=== PATIENT | female | born 1955 | race Asian ===

== ENCOUNTER 2023-06-14 09:34 | Outpatient (OUT) | payer MEDICARE, SELFPAY ==
--- NOTE | 2023-06-14 09:54 | MM_ITS ---
Patient Name: VIKTOR BERNARD MR#: [id number] : 1955 Exam Date: 06/14/2023 Ordering Doctor: DR Saqib Benson . RADIOLOGY REPORT PROCEDURE: MM TOMOSYNTHESIS SCREENING BI COMPARISON: MG MAMM HAILY SCRN W CAD DIG, 05/30/2015. MG MAMM HAILY SCRN W CAD DIG, 11/06/2012. INDICATIONS: screening Calculator Name NCI Breast Cancer Risk Assessment Tool 5 Year Breast Cancer Risk 1.50% Lifetime Breast Cancer Risk 5.20% Personal Breast Cancer No Personal Ovarian Cancer No Treatments None Family Cancers None LOCATION: [facility] BREAST COMPOSITION: Heterogeneously dense,which may obscure small masses. FINDINGS: DIAGNOSTIC CATEGORY 1--NEGATIVE. RIGHT BREAST: No significant suspicious finding. No significant change has occurred. LEFT BREAST: No significant suspicious finding. No significant change has occurred. RECOMMENDATIONS: ROUTINE MAMMOGRAM AND CLINICAL EVALUATION IN 12 MONTHS. PLEASE NOTE: A NORMAL MAMMOGRAM DOES NOT EXCLUDE THE POSSIBILITY OF BREAST CANCER. A CLINICALLY SUSPICIOUS PALPABLE LUMP SHOULD BE BIOPSIED. Dictated by: William Hess M.D. on 06/14/2023 at 16:00 Approved by: William Hess M.D. on 06/14/2023 at 16:02
== END 2023-06-14 09:35 | disposition home or self-care (01) ==
PROVIDERS: PCP Family Medicine; Visit Provider Family Medicine
DX: Z12.31 Encounter for screening mammogram for malignant neoplasm of breast (principal)
CPT/HCPCS: 77063; 77067

== ENCOUNTER 2023-07-18 14:15 | Outpatient (OUT) | payer MEDICARE, SELFPAY | END 2023-07-18 14:16 | disposition home or self-care (01) | LOC: PST 14:16 | PROVIDERS: PCP Family Medicine; Visit Provider Surgery | DX: Z01.818 Encounter for other preprocedural examination (principal); Z12.11 Encounter for screening for malignant neoplasm of colon ==

== ENCOUNTER 2023-08-14 08:16 | Day surgery (SDC) | payer MEDICARE, SELFPAY ==
--- NOTE | 2023-08-14 | OP_ITS ---
OPERATION DATE: 08/14/2023 PREOPERATIVE DIAGNOSIS: Colorectal screening. POSTOPERATIVE DIAGNOSIS: Colon polyp x3; proximal transverse colon, sigmoid colon and rectal. PROCEDURE: Colonoscopy to cecum with cold snare polypectomy x3. SURGEON: Addy Nicolas M.D. ANESTHESIA: Monitored anesthesia care. ESTIMATED BLOOD LOSS: Less than 1 mL. INDICATIONS AND CONSENT: Patient is a 68-year-old female who presents for colorectal screening. Indications, risks, benefits, alternatives of proceeding with colonoscopy were explained extensively to the patient, including the risks of bleeding, colon perforation or anesthetic complications. All of her questions were answered. Informed consent was obtained. PROCEDURE: Patient brought to the operating room, placed in the left lateral decubitus position. Monitored anesthesia care was provided. Rectal exam was performed which showed no masses or blood. The scope was inserted into the anal canal. Under direct visualization was advanced. With the aid of abdominal compression, it was advanced to the cecum where cecal markings were clearly identified. There was noted to be a good prep. Upon withdrawal of the scope, mucosal surfaces were carefully examined. There were no mass lesions or inflammatory changes. Within the proximal transverse colon, there was noted to be a 4 mm sessile polyp that was removed with cold snare with good hemostasis. There was no significant diverticulosis. Within the mid sigmoid, there was noted to be a 3 mm sessile polyp that was removed with cold snare with good hemostasis. Within the proximal rectum, there was noted to be a 3 mm sessile polyp that was also removed with cold snare with good hemostasis. The scope was retroflexed in the anal canal. There was no significant hemorrhoidal disease. Scope was then withdrawn. Patient tolerated procedure well, was sent to recovery room in good condition.f/u colonoscopy likely in 5 years, but will depend on pathology results. CC: Saqib Benson M.D. [id number]
--- OUTSIDE RECORDS SUMMARY | 2023-08-14 08:18 | XMS_ITS | CCD ---
Author Organization [facility] Care Team Providers [facility] Technician Name Role Phone DR NOVA LINDSEY Admitting Unavailable DR NOVA LINDSEY Attending Unavailable DR NOVA LINDSEY Primary Care Unavailable DR NOVA LINDSEY Consulting Unavailable Rosie Hartley Unavailable NOVA LINDSEY Attending Unavailable NOVA LINDSEY Primary Care Physician Addy WHIPPLE Attending Unavailable Allergies Allergy Classification Reported Allergen(s) Allergy Type Date of Onset Reaction(s) Facility (2 sources) cefdinir; Translations: [cefdinir] Drug Allergy 6 [facility] (1 source) Penicillins Drug allergy (disorder) 6 [facility] (1 source) Penicillin G Drug Allergy nausea/vomiting [facility] Other (1 source) cefdinir; Translations: [cefdinir] Drug Allergy [facility] [place] (2 sources) Penicillin; Translations: [penicillin] Drug Allergy [facility] [place] Medications Current Medications Medication Drug Class(es) Dates Sig (Normalized) Sig (Original) [id number] 200 actuat albuterol 0.09 mg/actuat metered dose inhaler (1 source) beta2-Adrenergic Agonist Start: 03-25-2017 take 2 puff(s) by inhalation every six hours as needed Albuterol Sulfate HFA 108 (90 Base) MCG/ACT 2 puffs as needed Inhalation every 6 hrs, prn for 10 days Mar, Active aspirin 81 mg delayed release oral tablet (1 source) Platelet Aggregation Inhibitor, Nonsteroidal Anti-inflammatory Drug take 1 tablet by mouth every twenty-four hours Aspirin Adult Low Dose 81 MG 1 tablet Orally Once a day Active Biotin (1 source) Biotin Active cetirizine hydrochloride 10 mg oral tablet (1 source) Histamine-1 Receptor Antagonist take 1 tablet by mouth once daily Cetirizine HCl 10 MG take 1 tablet by mouth once daily Oral for 30 Days Active Fish Oils (2 sources) Start: 06-12-2023 take 2 capsules by mouth once daily Fish Oil 1000 mg oral capsule 2,000 mg = 2 cap(s), Oral, Daily, Refills(s) 0 Start Date: 06/12/23 Status: Ordered Fish Oil Active Magnesium (1 source) Magnesium Active magnesium oxide 400 mg oral tablet (1 source) Start: 06-12-2023 take 1 tablet by mouth once daily magnesium oxide 400 mg Tab 400 mg = 1 tab(s), Oral, Daily, Refills(s) 0 Start Date: 06/12/23 Status: Ordered 24 hr metoprolol succinate 50 mg extended release oral tablet (2 sources) beta-Adrenergic Prabha Start: 06-12-2023 take 1 tablet by mouth once daily metoprolol 50 mg ER Tab 50 mg = 1 tab(s), Oral, Daily, Refills(s) 0 Start Date: 06/12/23 Status: Ordered Metoprolol Succi franco ER 50 MG Oral for 90 Days Active montelukast 10 mg oral tablet (2 sources) Leukotriene Receptor Antagonist Start: 06-12-2023 take 1 tablet by mouth once daily Singulair 10 mg Tab 10 mg = 1 tab(s), Oral, Daily, Refills(s) 0 Start Date: 06/12/23 Status: Ordered Montelukast Sodi um 10 MG Oral for 30 Days Active Osteo Bi-Flex Regular Strength (1 source) Osteo Bi-Flex Regular Strength Active PARoxetine hydrochloride 20 mg oral tablet (2 sources) Serotonin Reuptake Inhibitor Start: 06-12-2023 take 1 tablet by mouth once daily Paxil 20 mg Tab 20 mg = 1 tab(s), Oral, Daily, Refills(s) 0 Start Date: 06/12/23 Status: Ordered PARoxetine HCl 2 0 MG Oral for 90 Days Active Potassium (1 source) Potassium Active solifenacin succinate 10 mg oral tablet (2 sources) Cholinergic Muscarinic Antagonist Start: 06-12-2023 take 1 tablet by mouth once daily Vesicare 10 mg Tab 10 mg = 1 tab(s), Oral, Daily, Refills(s) 0 Start Date: 06/12/23 Status: Ordered Solifenacin Succ inate 10 MG Oral for 90 Days Active Vitamin B Complex (1 source) Vitamin B Comple x Active Completed/Discontinued Medications Medication Drug Class(es) Dates Sig (Normalized) Sig (Original) Augmentin Tablets 875 MG (1 source) Start: 01-15-2015 take 1 tablet by mouth every twelve hours Augmentin Tablets 875 MG 1 by mouth every 12 hours with probiotics for 10 days Jan, Not-Taking cefixime 400 mg oral capsule (1 source) Cephalosporin Antibacterial Start: 04-01-2017 take 1 capsule by mouth every twenty-four hours Suprax 400 MG 1 capsule Orally Once a day for 10 day(s) Mar, Not-Taking Crutches-Aluminum 1 (1 source) Start: 07-02-2015 Crutches-Alumin um 1 as directed aluminum underarm crutches As Directed for as directed Jun, Not-Taking dextromethorphan hydrobromide 1.5 mg/ml / pyrilamine maleate 1.5 mg/ml oral solution (1 source) Uncompetitive M-qvmpfe-C-aspartate Receptor Antagonist, Sigma-1 Agonist [place] DM 7.5-7.5 MG/5ML 2 tsp Orally 6 to 8 hours as needed for 5 days Not-Taking fluticasone propionate 0.05 mg/actuat metered dose nasal spray (1 source) Corticosteroid take 2 spray(s) nasal route once daily Flonase 50 MCG/ACT 2 sprays Nasally Once a day Not-Taking Knee Brace/Flex Stays Large 1 (1 source) Start: 07-02-2015 Knee Brace/Flex Stays Large 1 as directed knee sleeve As Directed for as directed Jun, Not-Taking potassium chloride 10 meq extended release oral capsule (1 source) Start: 06-12-2023 take 1 capsule by mouth once daily potassium chloride 10 mEq Cap-ER 10 mEq = 1 cap(s), Oral, Daily, Refills(s) 0 Start Date: 06/12/23 Status: Ordered predniSONE 20 mg oral tablet (1 source) Start: 03-25-2017 take 1 tablet by mouth every twenty-four hours predniSONE 20 mg 1 tablet with food or milk Orally Once a day for 4 days Mar, Not-Taking Problems Active Problems Problem Classification Problem Date Documented Da te Episodic/Chronic Anxiety disorders (1 source) Generalized anxiety disorder 06-12-2023 Chronic Cardiac dysrhythmias (1 source) Sinus tachycardia 06-12-2023 Episodic Disorders of lipid metabolism (5 sources) Hyperlipidemia, unspecified; Translations: [Hyperlipidemia] Onset: 06-26-2022 Chronic Other aftercare (1 source) Other termite treater (current) drug therapy; Translations: [OTH PENITENTIARY CURRENT DRUG THERAPY] Onset: 07-01-2022 Episodic Other diseases of bladder and urethra (1 source) Overactive bladder 06-12-2023 Chronic Other nutritional; endocrine; and metabolic disorders (1 source) Overweight 07-05-2023 Episodic Other nutritional; endocrine; and metabolic disorders (1 source) Overweight in adulthood with body mass index of 25 or more but less than 30 07-05-2023 Episodic Other screening for suspected conditions (not mental disorders or infectious disease) (1 source) Screening for malignant neoplasm of colon done; Translations: [Encounter for screening for malignant neoplasm of colon] Onset: 07-05-2023 Episodic Other upper respiratory disease (1 source) Seasonal allergic rhinitis 06-12-2023 Chronic Other upper respiratory infections (1 source) Acute upper respiratory infection, unspecified Episodic Unclassified (1 source) Patient encounter status 07-05-2023 Past or Other Problems Problem Classification Problem Date Documented Da te Episodic/Chronic Unclassified (1 source) Contact with and (suspected) exposure to covid-19 Z20.822 Results Test Name Value Interpretation Reference Range Facility Consent for Procedure/Surger yon 07-09-2023 Consent for Procedure/Surgery [id number] #1.00TIFF Normal [place] Facesheeton 07-08-2023 Facesheet [id number] 9#1.00TIFF Normal [place] Ambulatory Visit Summaryon 0 07-05-2023 Ambulatory Visit Summary VIKTOR BERNARD Nydia :1955 Visit Date:07/05/2023 Ambulatory Visit Instructions Your Diagnosis Screening for malignant neoplasm of colon Your Care Team Attending Physician - SOLE GARCIA, Addy White Primary Care Physician - CÉSAR GARCIA, NOVA This Is Your Medications List Contact prescribing physician if questions or concerns magnesium oxide (magnesium oxide 400 mg Tab) metoprolol (metoprolol 50 mg ER Tab) montelukast (Singulair 10 mg Tab) omega-3 polyunsaturated fatty acids (Fish Oil 1000 mg oral capsule) paroxetine (Paxil 20 mg Tab) potassium chloride (potassium chloride 10 mEq Cap-ER) solifenacin (Vesicare 10 mg Tab) Procedures Performed Meniscectomy. Discharge Vitals Heart Rate (Peripheral) 72 Respiratory Rate 16 Blood Pressure 116/80 Height 157.48 cm Height 62 in Weight 68.3 kg Weight 150.26 lb BMI 27.54 Medications What How Much When Instructions Unchanged magnesium oxide (magnesium oxide 400 mg Tab) 1 Tablets By Mouth Every day Contact prescribing physician if questions or concerns Unchanged metoprolol (metoprolol 50 mg ER Tab) 1 Tablets By Mouth Every day Contact prescribing physician if questions or concerns Unchanged montelukast (Singulair 10 mg Tab) 1 Tablets By Mouth Every day Contact prescribing physician if questions or concerns Unchanged omega-3 polyunsaturated fatty acids (Fish Oil 1000 mg oral capsule) 2 Capsules By Mouth Every day Contact prescribing physician if questions or concerns Unchanged paroxetine (Paxil 20 mg Tab) 1 Tablets By Mouth Every day Contact prescribing physician if questions or concerns Unchanged potassium chloride (potassium chloride 10 mEq Cap-ER) 1 Capsules By Mouth Every day Contact prescribing physician if questions or concerns Unchanged solifenacin (Vesicare 10 mg Tab) 1 Tablets By Mouth Every day Contact prescribing physician if questions or concerns Allergies cefdinir penicillin Problems Ongoing - Any problem that you are currently receiving treatment for. Allergic rhinitis, seasonal BMI 27.0-27.9,adult RORY (generalized anxiety disorder) Hyperlipidemia Overactive bladder Overweight Screening for malignant neoplasm of colon Sinus tachycardia Patient Survey You may receive a survey via text or e-mail asking about your office visit. Please share your experience with us by completing your survey. We appreciate your feedback and thank you for choosing us for your care. [facility] Physician Referralon 024 Physician Referral [id number] #1.00TIFF [facility] COVID + FLU Quick Testingon 04-01-2023 SARS-CoV-2 (COVID-19) RNA AMBER+probe Ql (Unsp spec) Negative [facility] Other COVID + FLU Quick Testing Negative [facility] Other CBC AUTO DIFFon 06-26-2022 BASO # 0.1 103/ul Normal 0.0-0.1 [facility] Comment on above: Performed By: #### C BC #### [facility] [address] [address] [address] John Varela Basophils/100 WBC (Bld) 1.0 % Normal 0.2-2.0 [facility] Comment on above: Performed By: #### C BC #### [facility] [address] [address] [address] John Varela EO # 0.1 103/ul Normal 0.0-0.7 [facility] Comment on above: Performed By: #### C BC #### [facility] [address] [place] [address] Dr. John Varela Eosinophils/100 WBC (Bld) 1.6 % Normal 0.9-7.0 [facility] Comment on above: Performed By: #### C BC #### [facility] [address] [place] [address] Dr. John Varela Erythrocyte distribution width (RBC) [Ratio] 12.3 % Normal 11.0-15.0 [facility] Comment on above: Performed By: #### C BC #### [facility] [address] [place] [address] Dr. John Varela Hematocrit (Bld) [Volume fraction] 37.3 % Normal 36.0-48.0 [facility] Comment on above: Performed By: #### C BC #### [facility] [address] [place] [address] Dr. John Varela Hemoglobin (Bld) [Mass/Vol] 12.8 g/dL Normal 12.0-16.0 [facility] Comment on above: Performed By: #### C BC #### [facility] [address] [place] [address] Dr. John Varela IG # 0.03 10e3/ul Normal 0.00-0.03 [facility] Comment on above: Performed By: #### C BC #### [facility] [address] [place] [address] Dr. John Varela IG % 0.5 % Normal 0.0-0.5 [facility] Comment on above: Performed By: #### C BC #### [facility] [address] [place] [address] Dr. John Varela LYMPH # 3.1 103/ul Normal 1.2-3.8 [facility] Comment on above: Performed By: #### C BC #### [facility] [address] [place] [address] Dr. John Varela Lymphocytes/100 WBC (Bld) 51.2 % Normal 20.5-60.0 [facility] Comment on above: Performed By: #### C BC #### [facility] [address] [place] [address] Dr. John Varela MANUAL DIFF REQ NO Normal [facility] Comment on above: Performed By: #### C BC #### [facility] [address] [place] [address] Dr. John Varela MCH (RBC) [Entitic mass] 30.8 pg Normal 26.7-34.0 [facility] Comment on above: Performed By: #### C BC #### [facility] [address] [place] [address] Dr. John Varela MCHC (RBC) [Mass/Vol] 34.3 g/dL Normal 29.9-35.2 [facility] Comment on above: Performed By: #### C BC #### [facility] [address] [place] [address] Dr. John Varela MCV (RBC) [Entitic vol] 89.9 fL Normal 81.0-99.0 [facility] Comment on above: Performed By: #### C BC #### [facility] [address] [place] [address] Dr. John Varela MONO # 0.6 103/ul Normal 0.3-0.8 [facility] Comment on above: Performed By: #### C BC #### [facility] [address] [place] [address] Dr. John Varela Monocytes/100 WBC (Bld) 9.4 % Normal 1.7-12.0 [facility] Comment on above: Performed By: #### C BC #### [facility] [address] [place] [address] Dr. John Varela NEUT # 2.2 103/ul Normal 1.4-6.5 [facility] Comment on above: Performed By: #### C BC #### [facility] [address] [place] [address] Dr. John Varela Neutrophils/100 WBC (Bld) 36.3 % Critically low 43.0-75.0 [facility] Comment on above: Performed By: #### C BC #### [facility] [address] [place] [address] Dr. John Varela Platelet mean volume (Bld) [Entitic vol] 8.1 fL Critically low 9.5-13.5 [facility] Comment on above: Performed By: #### C BC #### [facility] [address] [place] [address] Dr. John Varela PLT 284 103/ul Normal 150-450 [facility] Comment on above: Performed By: #### C BC #### [facility] [address] [place] [address] Dr. John Varela RBC 4.15 106/ul Critically low 4.20-5.40 [facility] Comment on above: Performed By: #### C BC #### [facility] [address] [place] [address] Dr. John Varela WBC 6.1 103/ul Normal 4.0-11.0 [facility] Comment on above: Performed By: #### C BC #### [facility] [address] [place] [address] Dr. John Varela LIPID PROFILEon 06-26-2022 CHOL-HDL RATIO NORM SEE BELOW Normal [facility] Comment on above: Result Comment: 3.3 - 4.4 LOW RISK 4.4 - 7.1 AVERAGE RISK 7.1 - 11.0 MODERATE RISK >11.0 HIGH RISK Performed By: #### L IPID, BMP, LIVER #### [facility] [address] [address] [address] John Varela Cholesterol [Mass/Vol] 187 mg/dL Normal <=200 [facility] Comment on above: Performed By: #### L IPID, BMP, LIVER #### [facility] [address] [address] [address] John Varela Cholesterol in HDL [Mass/Vol] 46 mg/dL Normal 40-60 [facility] Comment on above: Performed By: #### L IPID, BMP, LIVER #### [facility] [address] [address] [address] John Varela Cholesterol in LDL [Mass/Vol] 97.4 mg/dL Normal [facility] Comment on above: Performed By: #### L IPID, BMP, LIVER #### [facility] [address] [address] [address] John Varela Cholesterol.total/ Cholesterol in HDL [Mass ratio] 4.1 {ratio} Normal [facility] Comment on above: Performed By: #### L IPID, BMP, LIVER #### [facility] [address] [address] [address] John Varela HDL NORMAL > or = 60 mg/dl - LOW CARDIOVASCULAR RISK <40 mg/dl - HIGH CARDIOVASCULAR RISK Normal [facility] Comment on above: Performed By: #### L IPID, BMP, LIVER #### [facility] [address] [address] [address] John Varela LDL CALC NORMAL SEE BELOW Normal [facility] Comment on above: Result Comment: <100 mg/dl OPTIMAL 100 - 129 mg/dl NEAR OR ABOVE OPTIMAL 130 - 159 mg/dl BORDERLINE HIGH 160 - 189 mg/dl HIGH >190 mg/dl VERY HIGH Performed By: #### L IPID, BMP, LIVER #### [facility] [address] [address] [address] John Varela Triglyceride [Mass/Vol] 218 mg/dL Critically high <=150 [facility] Comment on above: Performed By: #### L IPID, BMP, LIVER #### [facility] [address] [address] [address] John Varela VLDL CALC 43.6 mg/dL Normal [facility] Comment on above: Performed By: #### L IPID, BMP, LIVER #### [facility] [address] [address] [address] John Varela LIVER PROFILEon 06-26-2022 Albumin [Mass/Vol] 4.1 g/dL Normal 3.4-5.0 [facility] Comment on above: Performed By: #### L IPID, BMP, LIVER #### [facility] [address] [address] [address] John Varela Albumin/Globulin [Mass ratio] 1.1 {ratio} Normal [facility] Comment on above: Performed By: #### L IPID, BMP, LIVER #### [facility] [address] [place] [address] Dr. John Varela ALP [Catalytic activity/Vol] 65 U/L Normal 46-116 [facility] Comment on above: Performed By: #### L IPID, BMP, LIVER #### [facility] [address] [place] [address] Dr. John Varela ALT [Catalytic activity/Vol] 77 U/L Critically high 14-59 [facility] Comment on above: Performed By: #### L IPID, BMP, LIVER #### [facility] [address] [place] [address] Dr. John Varela AST [Catalytic activity/Vol] 47 U/L Critically high 15-37 [facility] Comment on above: Performed By: #### L IPID, BMP, LIVER #### [facility] [address] [address] [address] John Varela BILI, CONJUGATED 0.1 mg/dL Normal 0.0-0.2 [facility] Comment on above: Performed By: #### L IPID, BMP, LIVER #### [facility] [address] [address] [address] John Varela Bilirubin [Mass/Vol] 0.4 mg/dL Normal 0.2-1.0 [facility] Comment on above: Performed By: #### L IPID, BMP, LIVER #### [facility] [address] [address] [address] John Varela Globulin (S) [Mass/Vol] 3.7 g/dL Normal [facility] Comment on above: Performed By: #### L IPID, BMP, LIVER #### [facility] [address] [address] [address] John Varela Protein [Mass/Vol] 7.8 g/dL Normal 6.4-8.2 [facility] Comment on above: Performed By: #### L IPID, BMP, LIVER #### [facility] [address] [address] [address] John Varela PROF CHEM 8 (BAS METB)on Anion gap [Moles/Vol] 11.4 mmol/L Normal [facility] Comment on above: Performed By: #### L IPID, BMP, LIVER #### [facility] [address] [address] [address] John Varela Calcium [Mass/Vol] 9.3 mg/dL Normal 8.5-10.1 [facility] Comment on above: Performed By: #### L IPID, BMP, LIVER #### [facility] [address] [place] [address] Dr. John Varela Chloride [Moles/Vol] 100 mmol/L Normal 98-107 [facility] Comment on above: Performed By: #### L IPID, BMP, LIVER #### [facility] [address] [place] [address] Dr. John Varela CO2 [Moles/Vol] 29.8 mmol/L Normal 21.0-32.[address] [facility] Comment on above: Performed By: #### L IPID, BMP, LIVER #### [facility] [address] [place] [address] Dr. John Varela Creatinine [Mass/Vol] 0.58 mg/dL Normal 0.55-1.02 [facility] Comment on above: Performed By: #### L IPID, BMP, LIVER #### [facility] [address] [address] [address] John Varela EGFR-AF PARAGUAYAN >60 Normal >=60 [facility] Comment on above: Performed By: #### L IPID, BMP, LIVER #### [facility] [address] [address] [address] John Varela EGFR-NON AF PARAGUAYAN >60 Normal >=60 [facility] Comment on above: Performed By: #### L IPID, BMP, LIVER #### [facility] [address] [place] [address] Dr. John Varela Glucose [Mass/Vol] 88 mg/dL Normal 74-106 [facility] Comment on above: Performed By: #### L IPID, BMP, LIVER #### [facility] [address] [place] [address] Dr. John Varela Potassium [Moles/Vol] 4.2 mmol/L Normal 3.5-5.1 [facility] Comment on above: Performed By: #### L IPID, BMP, LIVER #### [facility] [address] [place] [address] Dr. John Varela Sodium [Moles/Vol] 137 mmol/L Normal 136-145 [facility] Comment on above: Performed By: #### L IPID, BMP, LIVER #### [facility] [address] [place] [address] Dr. John Varela Urea nitrogen [Mass/Vol] 8.0 mg/dL Normal 7.0-18.0 [facility] Comment on above: Performed By: #### L IPID, BMP, LIVER #### [facility] [address] [place] [address] Dr. John Varela Urea nitrogen/Creatinin e [Mass ratio] 13.8 mg/mg Normal [facility] Comment on above: Performed By: #### L IPID, BMP, LIVER #### [facility] [address] [place] [address] Dr. John Varela Vital Signs Date Time Vital Sign Value Performing Clinician Facility 07-05-2023 14:41-0500 Blood Pressure Location Addy NINONitesh [facility] [place] 07-05-2023 14:41-0500 Diastolic blood pressure 80 mm[Hg] Addy NINOL [facility] [place] 07-05-2023 14:41-0500 Heart rate 72 /min Addy NINOL [facility] [place] 07-05-2023 14:41-0500 Respiratory rate 16 /min Addy NINOL [facility] [place] 07-05-2023 14:41-0500 Systolic blood pressure 116 mm[Hg] Addy NINOL [facility] [place] 04-01-2023 12:55-0500 Body height 157.48 cm Rosie Hartley Other [facility] Other 04-01-2023 12:55-0500 Body mass index (BMI) [Ratio] 26.52 kg/m2 oRsie Hartley Other [facility] Other 04-01-2023 12:55-0500 Body temperature 97.5 [degF] Rosie Hartley Other [facility] Other 04-01-2023 12:55-0500 Body weight 65.77 kg Rosie Hartley Other [facility] Other 04-01-2023 12:55-0500 Diastolic blood pressure 68 mm[Hg] Rosie Hartley Other [facility] Other 04-01-2023 12:55-0500 Respiratory rate 18 /min Rosie Hartley Other [facility] Other 04-01-2023 12:55-0500 SaO2% (BldA) [Mass fraction] 98 % Rosie Hartley Other [facility] Other 04-01-2023 12:55-0500 Systolic blood pressure 114 mm[Hg] Rosie Hartley Other [facility] Other Encounters Encounter Date Encounter Type Care Provider Facility Start: 07-05-2023 End: 07-06-2023 ambulatory Addy White SOLE Facility:[facility] Start: 07-05-2023 End: 07-05-2023 Patient encounter procedure Addy White SOLE [facility] Start: 06-11-2023 ambulatory Addy WHIPPLE Facility:[facility] Start: 06-11-2023 End: 06-11-2023 ambulatory NOVA LINDSEY Not Available Start: 04-01-2023 End: 04-01-2023 ambulatory Rosie Hartley Other [facility] Other Start: 04-01-2023 Office outpatient ne w 20 minutes Rosie Hartley [facility] Start: 06-26-2022 End: 06-27-[address] NOVA LINDSEY Facility:[facility] Procedures Date Procedure Procedure Detail Performing Clinician 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 Addy WHIPPLE Immunizations Immunization Date Immunization Notes Care Provider Fa [facility] 02-08-2023 influenza virus vaccine, unspecified formulation Addy WHIPPLE [facility] [place] 02-03-2022 SARS-CoV-2 (COVID-19 ) [id number] Addy TRUNGNitesh [facility] [place] 04-18-2021 SARS-CoV-2 (COVID-19 ) mRNA BNT-162b2 vax Addy TRUNGL [facility] [place] 08-22-2020 SARS-CoV-2 (COVID-19 ) mRNA BNT-162b2 vax Addy TRUNGL [facility] [place] 08-02-2020 SARS-CoV-2 (COVID-19 ) mRNA BNT-162b2 vax Addy NINONitesh [facility] [place] Payers Date Payer Category Payer Unknown [id number] 1958 Medicare [id number] 1958 Private Health Insurance [id number] 1955 Unknown [id number] 1955 Unknown [id number] 1955 Unknown [id number] Social History Date Type Detail Facility Unknown if ever smoked [facility] Other Sex Assigned At [facility] Start: 07-05-2023 Tobacco smoking status Never s moked tobacco (finding) General [facility] [place] Tobacco smoking status Never Gener al Surgery [place] Functional Status Date Assessment Result Facility 07-05-2023 Functional Status N/A [facility] [place] Clinical Note 07-05-2023 Note Date & Type Note Facility 07-05-2023 Note Chief Complaint consultation for colonoscopy HPI Staff 68 year old female presents on consultation from Dr. Lindsey for screening colonoscopy. Denies abdominal or rectal pain. No rectal bleeding or change in bowel habits. Denies nausea or vomiting. No unexplained weight loss. Never had colonoscopy in the past. No known family history of colon cancer. History of Present Illness 68 yo female with h/o hyperlipidemia, RORY, referred for colorectal screening; denies change in bms or blood in stools; no abdominal complaints; denies asa or NSAID use, no SBE prophylaxis; no abdominal operations or previous colonoscopy; no fmhx of GI malignancy or IBD; no tobacco use. Review of Systems PHQ Score Initial Depression Screen Score: 0 SCORE ROS - Provider Constitutional: no fever, no sweats, no weight loss. Eyes: no glasses, no blurred vision, no visual loss. ENMT: no dentures, no hoarseness, no swallowing difficulties, no hearing loss, no ear infection(s), no nose bleeds. Cardiovascular: normal blood pressure, no chest pain, regular heartbeat, no heart murmur. Respiratory: no shortness of breath, no cough, no asthma, no wheezing. Gastrointestinal: no nausea, no vomiting, no diarrhea, no constipation, no blood in stool, no change in bowel habits, no abdominal pain, no hepatitis. Genitourinary: no kidney stones, no urine infection, no dysuria. Musculoskeletal: no pain, no weakness. Skin: no changing moles, no rash, no skin lumps. Neurologic: no seizures, no epilepsy, no headache. Psychiatric: no emotional or psychiatric problem. Heme/Lymph: no bleeding problems, no anemia, no blood clots, no transfusions. Allergy/Immunologic: no swollen lymph nodes/glands, no IV drug abuse. Other: Additional ROS info: Except as noted in the above Review of Systems and in the History of Present Illness, all other systems have been reviewed and are negative or noncontributory. Physical Exam Vitals & Measurements HR: 72(Peripheral)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
[2023-08-14 08:31] VITALS: BMI 26.7
[2023-08-14 08:36] VITALS: BP 116/74; PULSE 85; TEMP 35.9; O2SAT 100
[2023-08-14] MEDS: LACTATED RINGER'S SOLUTION 1,000 ML 50 ML IV (08:37)
[2023-08-14 10:48] VITALS: BP 110/76; PULSE 82; TEMP 36.4; O2SAT 97
[2023-08-14 11:03] VITALS: BP 127/74; PULSE 74; O2SAT 99
[2023-08-14 11:18] VITALS: BP 137/85; PULSE 77; O2SAT 96
== END 2023-08-14 11:18 | disposition home or self-care (01) ==
PROVIDERS: PCP Family Medicine; Visit Provider Surgery
PROC: (CPT 45385; principal; 2023-08-14 09:35)
DX: Z12.11 Encounter for screening for malignant neoplasm of colon (principal); D12.3 Benign neoplasm of transverse colon; K63.5 Polyp of colon; D12.8 Benign neoplasm of rectum; E78.5 Hyperlipidemia, unspecified; F41.1 Generalized anxiety disorder; Z79.899 Other long term (current) drug therapy
CPT/HCPCS: 45385; 88305; 99999; J2704

== ENCOUNTER 2025-04-23 11:19 | Outpatient (OUT) | payer MEDICARE, OTHER, SELFPAY ==
[2025-04-23 11:52] LABS: Hematocrit 41.4 % (36.0-48.0); Hemoglobin 14.2 g/dL (12.0-16.0); Immature Granulocytes Abs Auto 0.05 10^3/uL (0.00-0.03); Immature Granulocytes Pct Auto 0.9 % (0.0-0.5); Lymphocytes Absolute Auto 2.5 10^3/uL (1.2-3.8); Mean Corpuscular HGB Conc 34.3 g/dL (29.9-35.2); Mean Corpuscular Hemoglobin 31.3 pg (26.7-34.0); Mean Corpuscular Volume 91.2 fL (81.0-99.0); Platelet Count 277 10^3/uL (150-450); Red Blood Count 4.54 10^6/uL (4.20-5.40); White Blood Count 5.7 10^3/uL (4.0-11.0)
[2025-04-23 13:11] LABS: Alanine Aminotransferase 131 U/L (14-59); Albumin Globulin Ratio 1.0; Albumin Level 4.1 g/dL (3.4-5.0); Alkaline Phosphatase 70 U/L (46-116); Anion Gap 10.4; Aspartate Amino Transferase 67 U/L (15-37); Blood Urea Nitrogen 8.0 mg/dL (7.0-18.0); Calcium 9.9 mg/dL (8.5-10.1); Carbon Dioxide 29.8 mmol/L (21.0-32.0); Chloride 102 mmol/L (98-107); Cholesterol 240 mg/dL (<=200); Estimated GFR (African America >60 (>=60 mL/min/1.73m^2); Estimated GFR (Non-African Ame >60 (>=60 mL/min/1.73m^2); Globulin 4.2 g/dL; Glucose 94 mg/dL (74-106); HDL Cholesterol 41 mg/dL (40-60); Potassium 4.2 mmol/L (3.5-5.1); Sodium 138 mmol/L (136-145); Thyroid Stimulating Hormone 2.604 uIU/mL (0.358-3.740); Total Protein 8.3 g/dL (6.4-8.2); Triglycerides 343 mg/dL (<=150); VLDL CHOLESTEROL 68.6 mg/dL
== END 2025-04-23 11:20 | disposition home or self-care (01) ==
LOC: LAB 11:21
PROVIDERS: PCP Family Medicine; Visit Provider Family Medicine
DX: Z79.899 Other long term (current) drug therapy (principal); E78.5 Hyperlipidemia, unspecified; R53.83 Other fatigue
CPT/HCPCS: 36415; 80053; 80061; 84443; 85025

== ENCOUNTER 2025-04-28 11:12 | Outpatient (OUT) | payer MEDICARE, OTHER, SELFPAY ==
--- OUTSIDE RECORDS SUMMARY | 2025-04-23 05:47 | XMS_ITS | Continuity of Care Document ---
Author Organization [facility] Address [address] [place] [address] Phone Care Team Providers Care Student Finance Advisor Name Role Phone Saqib Benson MD Primary Care Provider Ayana Gutierrez APRN Attending Provider Louise Adhikari APRN-ZEB-C Attending Provider + Saqib Benson MD Attending Provider Care Teams Patient Care Team Team Status: Active Member Role/Relationship Status Dates Saqib Benson MD Primary Care Provider Active Visit Care Team Team Status: Inactive Member Role/Relationship Status Dates Saqib Benson MD Primary Care Provider Active S tart: February 22, 2025 End: February 22Mehrdad Holliday ProviderActiveStart: February 22, 2025 End: February 22, 2025 Visit Care Team Team Status: Inactive Member Role/Relationship Status Dates Saqib Benson MD Primary Care Provider Active S tart: March 15, 2025 End: March 15, 2025BREANNA Baxter-CAttending ProviderActive Start: March 15, 2025 End: March 15, 2025 Patient Care Team Team Status: Inactive Member Role/Relationship Status Dates Saqib Benson MD Primary Care Provider Active S tart: April 23, 2025 End: April 23, 2025Jami Cortés ProviderActiveStart: April 23, 2025 End: April 23, 2025 Chief Complaint and Reason for Visit Chief Complaint Admit Date Rash on face and neck February 22, 2025 11:40am Reason for Visit Admit Date Rash February 22, 2025 1 1:40am Daytime hypersomnolence March 15 10:49am Mild neurocognitive disorder March 10:49am Medicare annual wellness visit, subseque nt April 23, 2025 9:56am Allergies, Adverse Reactions, Alerts Allergen Type Severity Reaction Last Updated Verified Status penicillin G Allergy Unknown nausea/vomiting Novembe r 2024 8:58am Yes Active cefdinir Allergy Unknown Unknown Reaction April 22, 2025 2:09pm Yes Active Social History Smoking Status Status Start Date End Date Date of Observa tion Never smoked tobacco (finding) April 01, 2023 1:00pm Observation Status Observation Response Date of Response Legal Sex [facility] (finding) [facility] Family [facility] Relationship Condition Age at Onset Recorded Date/T pati father Diabetes mellitus Unknown DeceasedUnknown Problems Active Problems Problem Diagnosis/Recorded Date Onset Date Stat us Generalized osteoarthritis April 20, 2025 8:18am U nknown Active Medicare annual wellness vis it, subsequent April 23, 2025 10:34am Unknown Active Moderate Alzheimer's dementi a without behavioral disturbance, psychotic disturbance, mood disturbance, or anxiety April 20, 2025 8:20am Unknown Active Generalized anxiety disorder April 20, 2025 8:18am Unknown Active Overactive bladder April 20, 2025 8:19am Unknown Active Dyslipidemia April 20, 2025 8:18am Unknown Ac tive Sinus tachycardia April 20, 2025 8:19am Unknown Active Rash February 22, 2025 11:18am Unknown A ctive Mild neurocognitive disorder March 14, 2025 2:41pm Unknown Active Osteoarthritis of knee April 20, 2025 8:17am Unkno wn Active Encounter for long-term (cur rent) use of medications April 23, 2025 10:34am Unknown Active Seasonal allergic rhinitis d ue to pollen April 20, 2025 8:19am Unknown Active Bilateral hip pain April 20, 2025 8:17am Unknown Active Chronic right shoulder pain April 20, 2025 8:18am Unknown Active Daytime hypersomnolence March 15, 2025 12:12pm Unk nown Active Medications Medication Status Dose Units Route Directions Qty Days Refills S tart Date Stop Date End Date Reason(s) Instructions Adherence Paroxetine Hcl (Paxil) 20 mg tablet Discontinued 20 MG PO Daily 30 5Sept2024 11:[facility] 2024 7:56amParoxetine Hcl (Paxil) 20 mg ufjbbyVfbajagrlslq18ZECSLsfwn872Krqilsnir 2024 7:55amOctober 2024 9:39amMetoprolol Succinate 50 mg tablet extended release 24 hrDiscontinued 44OCHENgkzy689Jxhvybx 2024 11:[facility]pm[facility] 2024 9:15amParoxetine Hcl (Paxil) 20 mg evggljPhzwmz81DBJOAoxfi398Amqdgdq 2024 9:39amComplies with drug therapyMetoprolol Succinate 50 mg tablet extended release 24 qxSieyzs55NBMP Yyzba626Nppfheai 2024 9:15amComplies with drug therapyMontelukast 10 mg nefcnqTkfost02KNWGMfhklNsstdlji 2024 12:00amComplies with drug therapy Solifenacin 10 mg ijbucuNdrqqr44GGHGtegctOmbcezgj 2024 12:00amComplies with drug therapyHydroxyzine Hcl 25 mg tabletActiveMGPODecesierra [place] 2024 12:00am Complies with drug therapyPrednisone 20 mg wlonppJocnysrwnokt47XDVHZoqvs0536 February 21, 2025 11:00pm[facility] 2024 10:58amHydrocortisone (Anti-Itch (Hc)) 1 % lleleWqpxtr3EEJKJXZSHGNCGXpinr daily as needed for rash28.3570Octsaint [facility] 2024 11:00pmComplies with drug therapyHydroxyzine Hcl 25 mg tablet Foxnicnbqkdn21UNRJXxepd times daily as needed for odjnysb1372Dusgdtc 2024 11:00pm[facility] 2024 10:58amMupirocin 2 % qonylojjKdvjvh0EWMHYXMJRGDSWNhjuv ceynv7041Wfcrydt 2024 11:00pmComplies with drug therapy Vital Signs Vital Reading Result Reference Range Collection Date/Time Height 62 [in_i] February 22, 2025 10:44uhUojuzx15.66 kgOctsaint elizabeth [facility] 2024 10:47amBody Xithhhlppui51.0 [degF]97.6-99.0Octsaint elizabeth [facility] 2024 10:47amHeart Rate68 /zlw80-091 February 22, 2025 10:47amRespiratory rate19 /udq63-39Fefcfoa 2024 10:47am Oxygen saturation by Pulse snfgiofx04 %95-100Oct[facility] 2024 10:47amBP Fathhwcy155 mm[Hg]100-140Oct[facility] 2024 10:47amBP Yeddcvixp24 mm[Hg]60-100 February 22, 2025 10:47amBMI (Body Mass Index)27.6 kg/f6Kabmrpi 2024 10:15urLeqila41 [in_i]March 15, 2025 8:57owZeamkt19.03 kgNov2024 8:57amHeart Rate82 /fnh07-408YgdaxicfMarch 15, 2025 8:57amRespiratory rate16 /min 12-24March 15, 2025 8:57amOxygen saturation by Pulse coowunpb59 %95-100 March 15, 2025 8:57amBP Wzmpkiuc613 mm[Hg]100-140Nov2024 8:57amBP Pfylylciw16 mm[Hg]60-100Nov2024 8:57amBMI (Body Mass Index)27.4 kg/x5Fxmnoaos2024 8:57wrCqqqkc98 [in_i]April 23, 2025 10:12amWeight 72.12 kgDeceer 2024 10:12amBody Wlrglexcgaz14.1 [degF]97.6-99.0Decesierra [place] 2024 10:12amHeart Rate92 /qyf78-631Vkkptvcf 12th, 2025 10:12amRespiratory rate20 /tnj53-58Gwvzbmkd 12th, 2025 10:12amOxygen saturation by Pulse ythxtixc78 %95-100Dece2024 10:12amBP Dauwjrrw884 mm[Hg]100-140Decemb2024 10:12amBP Jqoewtsim52 mm[Hg]60-100Decemb2024 10:12amBMI (Body Mass Index)29.0 kg/j5Cwsrxdtv 2024 10:12am Advance Directives Advance Directive Response Recorded Date/ Time Advance Directives No July 14 5:24pm Insurance Providers Guarantor Nydia Mishra Address [address] [facility] [address]Bhnwzfj Info.Home Phone: Coverage Status Update:2025 Payer Group Member ID Coverage Type Subscriber Relationship to Subscriber Effective Date Expiration Date Medicare [id number] Willis , M Id: [id number] [address] [place] [address] Home Phone: [employer] [address] [place] [address] Work Phone: [phone] Willis , M Id: [id number] [address] [place] [address] Home Phone: [employer] Id: [id number] Willis , M Id: [id number] [address] [place] [address] Home Phone: Self Encounters Encounter Location(s) Arrival/Admit Date Discharge/Departure Date Discharge/Departure Disposition Provider(s) Departed Physician/ Provider Office Visit -[facility] Urgent Care [place] February 22, 2025 11:40am February 22, 2025 12:02pm Discharged to home care or self care (routine discharge) Nydia Silverio APRN Departed Physician/ Provider Office Visit -[facility] Neurology [place] March 15, 2025 10:49am March 15, 2025 11:35am Discharged to home care or self care (routine discharge) Louise Adhikari APRN-CAD MANAGER-C Departed Physician/ Provider Office Visit -[facility] Family Medicine [place] April 23, 2025 9:56am April 23, 2025 10:45am Discharged to home care or self care (routine discharge) Saqib Benson MD Recent Diagnosis Onset Date Admit Date Rash Unknown February 22 11:40am Daytime hypersomnolence Unknown March 15, 2025 10:49am Mild neurocognitive disorder Unknown Mar 10:49am Medicare annual wellness visit, subsequent Unkno wn April 23, 2025 9:56am Assessments Diagnosis Onset Date Resolution Status Admit Date Rash acuteOctober 2024 11:40amDaytime hypersomnolencechronicNovember 2024 10:49amMild neurocognitive disorderchronicNovember 2024 10:49amMedicare annual wellness visit, subsequentacuteDecember 2024 9:56am Plan of Treatment Author Louise Adhikari [facility] 12:14pmMs. Anjali (pronounced, ???Hay?? ) is a 70-year-old female who presents with cognitive impairment, seemingly most consistent with mild cognitive impairment (MCI).?? She was initially evaluated in our office in Jun 2024 at which time son reported noticing a gradual but slow decline in her memory with onset a few years prior.?? The patient primarily reports difficulty with word retrieval and recall of names.?? She lives by herself and maintains independence with all ADLs, medication management, and driving.?? Previous vitamin B12 and TSH were within normal limits.?? MRI of the brain revealed generalized volume loss which was slightly advanced for patient age's and minor chronic microvascular changes. MOCA score on 07/07/2024 was 16/30.?? Neuropsychological evaluation on 07/28/2024 supported the diagnosis of mild neurocognitive disorder with no significant psychiatric contribution to the patient's cognitive difficulties.?? The patient sleeps well but does report snoring, daytime hypersomnolence, and recent weight gain. I suspect she could have undiagnosed obstructive sleep apnea contributing to her cognitive impairment. She denies feelings of anxiety or depression. PLAN: - I educated the patient and her daughter on MCI - I recommended the patient try to ensure adequate sleep (at least 7 to 8 hours per night), regular physical exercise as tolerated, and participation in lifelong learning - I recommended use of a pill organizer to help with medication compliance - Follow-up with primary care provider for management of blood pressure, cholesterol levels, blood glucose - Patient okay to continue driving to familiar locations locally and during daytime hours only. I advised the patient to refrain from driving at night, to unfamiliar locations, and for long distances. The patient and her daughter verbalized understanding of this recommendation and state they will comply. The patient and her daughter report subjective stability of the patient's cognitive function since the prior neurology appointment and deny any safety concerns at this time. They deny the patient getting lost while driving - I did recommend referral for OT driving evaluation to help further determine the patient's ability to operate a motor vehicle safely. The patient and her daughter declined this for now See above. PLAN: - Polysomnography to evaluate for a sleep-related breathing disorder such as obstructive sleep apnea which could be contributory to the patient's symptoms. I advised the patient and her daughter to notify our office if they are not contacted to schedule this within 1 week of today's appointment Diagnoses and treatment plan discussed. The patient and her daughter verbalized understanding and are agreeable to the plan. All questions answered. Author Saqib Benson [facility] 20[facility] 10:42amDue for labs and mammogram. Discussed proper diet and regular aerobic exercise.?? Need aerobic exercise 5-6 days a week for 30 minutes at a time.?? Smaller portions and limit total calories.?? Colonoscopy every 10 years.?? Tetanus every 10 years.?? Advised not to smoke.?? Author Ayana Gutierrez [facility] 20[facility] 11:23amPatient is a pleasant, cooperative 69-year-old female who presents with the above complaints. She appears alert, nontoxic. Vitals normal. Symptoms and exam consistent with a rash, likely allergic reaction to the new lotion. Plan to treat with prednisone 40 mg by mouth daily for the next 5 days, hydroxyzine 25 mg by mouth up to 3 times a day as needed for itching, hydrocortisone cream to apply topically twice a day to the face and neck for itching. She is also to apply the mupirocin ointment twice a day for the next 7 days under the chin. Follow-up with PCP if symptoms persist. Patient verbalizes understanding is agreeable to plan of care at this time. Future Tests Future scheduled test information is unavailable Pending Tests Test Name Ordered Date Scheduled Date Comprehensive Metabolic Panel April 23 10:36am MM screening mammo BI w/CADDecember 2024 10:36am Future Visits Future appointment information is unavailable Future Procedures Procedure Name Ordered Date Scheduled Date AUTO BODY TECHNICIAN polysom procedure November 3rd, 2025 12:14pm Complete Blood Count Auto DiffDecesierra [place] 2024 10:36amLipid PanelDeceer 2024 10:36amThyroid Stimulating HormoneDecesierra [place] 2024 10:36am Future Medications Future medication information is unavailable Patient Instructions Patient instructions are unavailable
--- NOTE | 2025-04-28 11:15 | MM_ITS ---
Patient Name: VIKTOR BERNARD MR#: [id number] : 1955 Exam Date: 04/28/2025 Ordering Doctor: DR NOVA LINDSEY . RADIOLOGY REPORT PROCEDURE: MM TOMOSYNTHESIS SCREENING BI COMPARISON: MM TOMOSYNTHESIS SCREENING BI, 06/14/2023. MG MAMM HAILY SCRN W CAD DIG, 05/30/2015. MG MAMM HAILY SCRN W CAD DIG, 11/06/2012. INDICATIONS: Screening Calculator Name NCI Breast Cancer Risk Assessment Tool 5 Year Breast Cancer Risk 1.50% Lifetime Breast Cancer Risk 4.80% Personal Breast Cancer No Personal Ovarian Cancer No Treatments None Family Cancers None LOCATION: [facility] BREAST COMPOSITION: The breasts are heterogeneously dense, which may obscure small masses. FINDINGS: RIGHT BREAST: No significant suspicious finding. LEFT BREAST: No significant suspicious finding. DIAGNOSTIC CATEGORY 1--NEGATIVE. RECOMMENDATIONS: ROUTINE MAMMOGRAM AND CLINICAL EVALUATION IN 12 MONTHS. Dictated by: Randy Mendoza DO on 04/28/2025 at 13:11 Approved by: Randy Mendoza DO on 04/28/2025 at 13:16
--- OUTSIDE RECORDS SUMMARY | 2025-04-28 11:15 | XMS_ITS | Clinical Summary ---
Author Organization [facility] Address [address] [place] [address] Care Team Providers Care Ordnance Truck Installation Mechanic Name Role Phone Saqib Benson MD Primary Care Provider [phone] Saqib Benson MD Unavailable Loyd Nur DO Unavailable [phone] Allergies Active AllergyReactionsCriticalityNoted VxgwIbgnzbdqNupixtbg21/21/2023 Other Reaction(s): Unknown Penicillin G001/31/2023 Other Reaction(s): Unknown Medications MedicationSigDispense QuantityRefillsLast FilledStart DateEnd DateStatus metoprolol succinate XL (Toprol-XL) 50 MG 24 hr tablet Indications:Sinus tachycardiaTAKE 1 TABLET DAILY 90 tablet 4Active solifenacin (VESIcare) 10 MG tablet Indications:Overactive bladderTAKE 1 TABLET DAILY 90 tablet 5Active Multiple Vitamin (multivitamin) tablet Take 1 tablet by mouth DailyActive montelukast (Singulair) 10 MG tablet Indications:Seasonal allergic rhinitis due to pollenTAKE 1 TABLET AT BEDTIME 90 tablet 5Active PARoxetine (Paxil) 20 MG tablet Indications:Generalized anxiety disorderTake 1 tablet (20 mg) by mouth in the morning for 4 days. 4 tablet 5Active Active Problems ProblemNoted DateDiagnosed DateMedicare annual wellness visit, subsequent 04/06/2024 Assessment & Plan (04/06/2024 12:06 PM EST): Due for labs. Discussed proper diet and regular aerobic exercise. Need aerobic exercise 5-6 days a week for 30 minutes at a time. Smaller portions and limit total calories. Colonoscopy every 10 years. Tetanus every 10 years. Advised not to smoke. Discussed daily Aspirin therapy. Encounter for long-term current use of rrmialejvx40/25/2024Moderate Alzheimer's dementia without behavioral disturbance, psychotic disturbance, mood disturbanc e, or mboxyzo9704/06/2024 Assessment & Plan (10/01/2024 10:04 AM EDT): Follow with neurology. Assessment & Plan (04/06/2024 12:05 PM EST): Concerned of dementia and refer to neurology for evaluation. Bilateral hip pain06/11/2023hronic right shoulder pain06/11/2023yslipidemia 06/11/2023Generalized anxiety ithxaqbb61/30/2024 Assessment & Plan (01/05/2025 10:51 AM EDT): Symptoms controlled with paxil and continue. Assessment & Plan (10/01/2024 10:04 AM EDT): Symptoms controlled with paxil and continue. Assessment & Plan (07/09/2024 3:39 PM EST): Symptoms controlled with paxil and continue. Assessment & Plan (12/18/2023 8:44 AM EDT): Symptoms controlled with paxil and continue. Assessment & Plan (06/11/2023 11:23 AM EST): Symptoms controlled with paxil and continue. Generalized yiscptdodchzwb63/30/2024Overactive yetitiw4806/11/2023 Assessment & Plan (01/05/2025 10:51 AM EDT): Symptoms controlled with vesicare and continue. Assessment & Plan (10/01/2024 10:04 AM EDT): Symptoms controlled with vesicare and continue. Assessment & Plan (07/09/2024 3:39 PM EST): Symptoms controlled with vesicare and continue. Assessment & Plan (12/18/2023 8:44 AM EDT): Symptoms controlled with vesicare and continue. Assessment & Plan (06/11/2023 11:23 AM EST): Symptoms controlled with vesicare and continue. Seasonal allergic rhinitis due to qmcjoj7106/11/2023 Assessment & Plan (01/05/2025 10:51 AM EDT): Symptoms controlled with medication and continue. Assessment & Plan (10/01/2024 10:04 AM EDT): Symptoms controlled with medication and continue. Assessment & Plan (07/09/2024 3:39 PM EST): Symptoms controlled with medication and continue. Assessment & Plan (04/06/2024 12:05 PM EST): Evidence of allergies and likely causing ear fullness. Continue singulair and resume zyrtec. Assessment & Plan (12/18/2023 8:44 AM EDT): Symptoms controlled with medication and continue. Assessment & Plan (06/11/2023 11:24 AM EST): Symptoms controlled with medication and continue. Sinus tckgmecubkt09/30/2024 Assessment & Plan (01/05/2025 10:51 AM EDT): No symptoms and continue metoprolol. Assessment & Plan (10/01/2024 10:04 AM EDT): No symptoms and continue metoprolol. Assessment & Plan (07/09/2024 3:39 PM EST): No symptoms and continue metoprolol. Assessment & Plan (12/18/2023 8:44 AM EDT): No symptoms and continue metoprolol. Assessment & Plan (06/11/2023 11:24 AM EST): No symptoms and continue metoprolol. Screening for colon nlwjmy9506/11/2023Osteoarthritis of knee01/31/2023 Immunizations ImmunizationAdministration DatesNext DueInfluenza, High-dose Seasonal, Quadrivalent, Preservative Free01/09/2022Influenza, Injectable, MDCK, preservative free01/11/2015Influenza, injectable, MDCK, preservative free, xsddppjbitnu20/02/2018Influenza, injectable, quadrivalent, preservative free 01/24/2021,02/25/2016Pneumococcal Conjugate PCV 13012/29/20202028XQNR-SMW-6 (COVID- 19) vaccine, mRNA, spike protein, LNP, bivalent, preservative free, 30 mcg/0.3 mLdose, kendra-sucrose lelfoisduqf71/24/9093Zauu54/30/2022,07/07/2016Zoster, live 06/10/2016 Family History Medical HistoryRelationNameCommentsDiabetesFatherRelationNameStatusComments FatherAlive Social History Tobacco UseTypesPacks/DayYears UsedDateSmoking Tobacco: FormerCigarettes Smokeless Tobacco: Never Tobacco Cessation:Counseling Given: Not Answered Comments:Quit smoking > 10 years ago Alcohol UseStandard Drinks/WeekCommentsYes0 (1 standard drink = 0.6 oz pure alcohol)PHQ-2AnswerDate RecordedPatient Health Questionnaire-2 Pqdmv18506/06/2023 CommentsUnknownSex and Gender InformationValueDate RecordedSex Assigned at BirthNot on fileLegal QojBbwkdw18/15/2023 6:51 PM EDTGender IdentityNot on fileSexual OrientationNot on file Last Filed Vital Signs Vital SignReadingTime TakenCommentsBlood Cdyzijjz155/62001/05/2025 10:23 AM EDT Uolyu9516/26/2025 10:23 AM UHVJaklnirlxdl61.3 ??C (97.3 ??F)01/05/2025 10:23 AM EDTRespiratory Zimk181601/05/2025 10:23 AM EDTOxygen Rqddilckho81%01/05/2025 10:23 AM EDTInhaled Oxygen Concentration--Sipuux19 kg (150 lb)01/21/2025 1:27 PM EDT Cqtkkw305.5 cm (5' 2 )01/21/2025 1:27 PM EDTBody Mass Index27.44001/21/2025 1:27 PM EDT Plan of Treatment Health MaintenanceDue DateLast DoneCommentsCT Uqnudfbccsyz1955FIT-DNA 1955FIT1955FOBT1955Medicare Annual Wellness (AWV)1955 Bjjfkqburmzsg1955Pneumococcal Vaccine: 65+ Years (2 of 2 - PCV20 or PCV21) /7755Imhctuhno24/02/202502/OVID-19 Vaccine ( season)/01/2024, 02/08/2023, 02/03/2022, Additional history exists Influenza Vaccine (#1)/01/2024, 02/08/2023, 01/09/2022, Additional history boyyweMdsjcmktdhr49/03/203404/07/2023, 08/14/2023olorectal Cancer Lncfphwkw48/03/2034 Goals GoalPatient Goal TypeAssociated ProblemsRecent ProgressPatient-Stated?Author Help patient manage antidepressant medication Care PlanPatient on antidepressant monitoring Ambreen Vance MA Procedures Procedure NamePriorityDate/TimeAssociated DiagnosisCommentsMM TOMOSYNTHESIS SCREENING BI06/14/2023 4:02 PM EST from Last 3 Months or Most Recently Relevant to Health Maintenance Results * MM TOMOSYNTHESIS SCREENING BI (06/14/2023 4:02 PM EST)Anatomical Region LateralityModalityOtherSpecimen (Source)Anatomical Location / Laterality Collection Method / VolumeCollection TimeReceived Time06/14/2023 4:02 PM EST Narrative 06/14/2023 4:03 PM EST [facility] ?[address] ? [place] [address] ? Mammography Report ? Signed ? Patient: QUESADA,VIKTOR M ?MR#: [id number] ?? : 1955 ?Acct:[id number] ?? Age/Sex: 68 / F ?ADM Date: 02/02/24 ?? Loc: MAMMO ? Attending Dr: Saqib Benson M.D. ? Ordering Physician: Saqib Benson M.D. ?Results: ? Date of Service: 06/14/23 ?Follow Up: ? Procedure(s): MM tomosynthesis screening BI ?? Accession Number(s): [id number] ? cc: Saqib Benson M.D. ? Patient Name: ? VIKTOR QUESADA ? MR#: [id number] ? : 1955 ? Exam Date: 06/14/2023 ?? Ordering Doctor: DR Saqib Benson . ? RADIOLOGY REPORT ? PROCEDURE: ? MM TOMOSYNTHESIS SCREENING BI ? COMPARISON: ? MG MAMM HAILY SCRN W CAD DIG, 05/30/2015. ??MG MAMM HAILY SCRN W CAD ?? DIG, 11/06/2012. ? INDICATIONS: ? screening ? Calculator Name ? NCI Breast Cancer Risk Assessment Tool ?? 5 Year Breast Cancer Risk ? 1.50% ?? Lifetime Breast Cancer Risk ? 5.20% ?? Personal Breast Cancer ?No ?? Personal Ovarian Cancer ? No ?? Treatments ? None ?? Family Cancers ? None ? LOCATION: ? [facility] ? BREAST COMPOSITION: ? Heterogeneously dense,which may obscure small masses. ? FINDINGS: ? DIAGNOSTIC CATEGORY 1--NEGATIVE. ? RIGHT BREAST: ??No significant suspicious finding. ??No significant change has ?? occurred. ? LEFT BREAST: ??No significant suspicious finding. ??No significant change has ?? occurred. ? RECOMMENDATIONS: ? ROUTINE MAMMOGRAM AND CLINICAL EVALUATION IN 12 MONTHS. ? PLEASE NOTE: ??A NORMAL MAMMOGRAM DOES NOT EXCLUDE THE POSSIBILITY OF BREAST ?? CANCER. ??A CLINICALLY SUSPICIOUS PALPABLE LUMP SHOULD BE BIOPSIED. ? Dictated by: William Hess M.D. on 06/14/2023 at 16:00 ? Approved by: William Hess M.D. on 06/14/2023 at 16:02 ? Dictated By: ?William Hess M.D. ? Signed By: ?06/14/23 1603 ? DD/ 1602 ? TD/TT: ? Transfer Controller: Procedure Note Radiology, Radiologist, MD - 06/14/2023 [place] [address] Mammography Report Signed Patient: VIKTOR QUESADA MMR#: [id number] : 1955cct:[id number] Age/Sex: 68 / FADM Date: 06/14/23 Loc: MAMMO Attending Dr: Saqib Benson M.D. Ordering Physician: Saqib Benson M.D.Results: Date of Service: 06/14/23Follow Up: Procedure(s): MM tomosynthesis screening BI Accession Number(s): [id number] cc: Saqib Besnon M.D. Patient Name: VIKTOR QUESADA MR#: [id number] : 1955 Exam Date: 06/14/2023 Ordering Doctor: DR Saqib Benson . RADIOLOGY REPORT PROCEDURE: MM TOMOSYNTHESIS SCREENING BI COMPARISON: MG MAMM HAILY SCRN W CAD DIG, 05/30/2015. MG MAMM HAILY SCRN WCAD DIG, 11/06/2012. INDICATIONS: screening Calculator Name NCI Breast Cancer Risk Assessment Tool 5 Year Breast Cancer Risk 1.50% Lifetime Breast Cancer Risk 5.20% Personal Breast Cancer No Personal Ovarian Cancer No Treatments None Family Cancers None LOCATION: [facility] BREAST COMPOSITION: Heterogeneously dense,which may obscure smallmasses. FINDINGS: DIAGNOSTIC CATEGORY 1--NEGATIVE. RIGHT BREAST: No significant suspicious finding. No significant changehas occurred. LEFT BREAST: No significant suspicious finding. No significant changehas occurred. RECOMMENDATIONS: ROUTINE MAMMOGRAM AND CLINICAL EVALUATION IN 12 MONTHS. PLEASE NOTE: A NORMAL MAMMOGRAM DOES NOT EXCLUDE THE POSSIBILITY OFBREAST CANCER. A CLINICALLY SUSPICIOUS PALPABLE LUMP SHOULD BE BIOPSIED. Dictated by: William Hess M.D. on 06/14/2023 at 16:00 Approved by: William Hess M.D. on 06/14/2023 at 16:02 Dictated By: William Hess M.D. Signed By:06/14/23 1603 DD/ 1602 TD/TT: Transfer Controller: Authorizing ProviderResult TypeResult StatusMarc Naderer MDCLINISYNC IMAGING Final Result from Last 3 Months or Most Recently Relevant to Health Maintenance Additional Health Concerns Active ProblemsNoted DateDiagnosed DatePatient on antidepressant monitoring plan 08/18/2024 Insurance [employer] [id number] Care Teams Team MemberRelationshipSpecialtyStart DateEnd Date Saqib Benson MD [facility] - [facility]23 Saqib Benson MD [address] [place] [id number] PCP - ACO Reach06/19/24 Loyd Nur DO [address] [place] [id number] Referring PhysicianNeurology07/28/24
--- OUTSIDE RECORDS SUMMARY | 2025-04-28 11:15 | XMS_ITS | Clinical Summary ---
Author Organization [facility] tem Address [facility] [id number] [address] [place] [address] Care Team Providers Care Code Enforcement Inspector Name Role Phone Saqib Benson MD Primary Care Provider [phone] Allergies Active AllergyReactionsCriticalityNoted NkqgPecjojgqHfnsfovkgac40/31/2017 Medications MedicationSigDispense QuantityRefillsLast FilledStart DateEnd DateStatus aspirin 81 mg Take 81 mg by mouth daily.Active potassium chloride (K-DUR,KLOR-CON) 10 MEQ CR tablet Take 10 mEq by mouth daily.Active magnesium oxide (MAG-OX) 400 mg tablet Take 400 mg by mouth daily.Active ascorbic acid, vitamin C, (vitamin C) 1000 mg tablet Take 1,000 mg by mouth daily.Active calcium carbonate (OS-KATJA) 600 mg (1,500 mg) tablet Take 600 mg by mouth 2 (two) times a day with meals.Active biotin 1 mg capsule Take 1 tablet by mouth daily.Active b complex vitamins capsule Take 1 capsule by mouth daily.Active omega-3 fatty acids-fish oil (FISH OIL) 300-1,000 mg capsule Take 2 g by mouth daily.Active Active Problems No known active problems Family History RelationNameStatusCommentsFatherDeceasedMotherDeceased Social History Tobacco UseTypesPacks/DayYears UsedDateSmoking Tobacco: FormerSmokeless Tobacco: NeverAlcohol UseStandard Drinks/WeekCommentsNo0 (1 standard drink = 0.6 oz pure alcohol)ChildcareAnswerDate CvtiophiNnzjjhbpnDbfiums02/12/2019EmploymentAnswer Date TzstsdhzScnadqckprEisswdv95/12/2019Purpose - LifeAnswerDate RecordedPurpose and direction in kedaSoxnfsv76/11/2021CommentsUnknownSex and Gender InformationValueDate RecordedSex Assigned at BirthNot on fileLegal SexFemale 12/16/2014 11:49 AM EDTGender IdentityNot on fileSexual OrientationNot on file Last Filed Vital Signs Vital SignReadingTime TakenCommentsBlood Kbmfqpaa108/72001/29/2017 1:55 PM EDT Arneh2862/19/2017 1:55 PM ABPVsrfdymlhmm23.9 ??C (98.5 ??F)01/29/2017 11:36 AM EDTRespiratory Tnxl458601/29/2017 11:36 AM EDTOxygen Msjefaldsi55%01/29/2017 1:55 PM EDTInhaled Oxygen Concentration--Iuaqtc30 kg (130 lb)01/29/2017 11:36 AM EDT Uxcojo360.5 cm (5' 2 )01/29/2017 11:36 AM EDTBody Mass Index23.78001/29/2017 11:36 AM EDT Plan of Treatment Not on file Medical Devices ImplantedTypeAreaManufacturerDevice IdentifierShelf Expiration DateModel / Serial / LotLens Iol - [id number] Implanted:Qty: 1 on 01/15/2017 by Juany Willingham MD at [facility]: [id number] IOL / NA / [id number] 20.5 Diopter - [id number] - [id number] Implanted:Qty: 1 on 01/29/2017 by Juany Willingham MD at [facility]: [id number] / [id number] / NA Insurance Care Teams Team MemberRelationshipSpecialtyStart DateEnd Date Saqib Benson MD [facility] - General01/02/17
== END 2025-04-28 11:13 | disposition home or self-care (01) ==
LOC: MAMMO 11:12
PROVIDERS: PCP Family Medicine; Visit Provider Family Medicine
DX: Z12.31 Encounter for screening mammogram for malignant neoplasm of breast (principal)
CPT/HCPCS: 77063; 77067